=== PATIENT | female | born 1960 | race Two or more races ===

== ENCOUNTER 2021-10-28 21:48 | Inpatient (IN) | payer MEDICAID ==
[~2021-10-28] VITALS: Ht 162.6 cm; Wt 63.3 kg
[~2021-10-28 21:48] MED LIST: ALBU18 IN; ASPI-543 PO; BECL0.07 IN; FAMO-12 PO; FENO5TAB PO; GABA600T PO; GEM600T GT; LIS20T GT; LOVA40TA46 PO; MET25T PO; NOR10T PO; SERT50TA PO
[2021-10-28] MEDS ORDERED: cefTRIAXone 1GM/50ML D5W 50 ML IV ONE (23:00)
[2021-10-28] MEDS ORDERED: SODIUM CHLORIDE 0.9% 1,000 ML IV ONE ×2 (23:00)
[2021-10-28] MEDS ORDERED: ONDANSETRON HCL 4 MG/2 ML VIAL IV ONE (23:00)
[2021-10-29 02:03] LABS: Basophils # (auto) 0 10 ^3/uL (0-0.2); Eosinophils # (auto) 0.5 10 ^3/uL (0-0.8); Neutrophils # (auto) 2.5 10 ^3/uL (1.6-8.6); Red Blood Cells 2.94 10^6/uL (4.0-5.20)
[2021-10-29 02:05] LABS: Basophils % (auto) 0.8 % (0.0-2.0); Eosinophils % (auto) 11.6 % (0.0-7.0); Hemoglobin 8.3 g/dL (12.2-16.2); Lymphocytes # (auto) 0.9 10 ^3/uL (0.4-5.4); Lymphocytes % (auto) 19.8 % (10.0-50.0); Mean Corpuscular Hemoglobin 28.2 pg (28.0-32.0); Mean Corpuscular Hgb Conc. 33.1 g/dL (32.0-36.0); Mean Corpuscular Volume 85.1 fL (80.0-100.0); Monocytes # (auto) 0.5 10 ^3/uL (0-1.3); Monocytes % (auto) 10.8 % (0.0-12.0); Red Cell Distribution Width 15.3 % (11.8-14.3); White Blood Cell 4.4 10^3/uL (4.4-10.8)
[2021-10-29 02:27] LABS: INR 1.08 (0.9-1.15); Partial Thromboplastin Time 28.2 sec (23.6-33.0)
[2021-10-29 02:57] LABS: Calcium 8.3 mg/dL (8.5-10.1); Potassium 5.4 mmol/L (3.5-5.1)
[2021-10-29 03:11] LABS: Albumin 2.7 g/dL (3.4-5.0); BUN/Creatinine Ratio 19.7; Bilirubin, Total 0.2 mg/dL (0.2-1.0); Total Protein 7.2 g/dL (6.4-8.2)
[2021-10-29] MEDS ORDERED: cefTRIAXone 1GM/50ML D5W 50 ML IV ONE (03:15)
[2021-10-29] MEDS ORDERED: AZITHROMYCIN 500MG/ 250ML 250 ML IV ONE (03:15)
[2021-10-29] MEDS ORDERED: IOHEXOL 350 MG/ML 100ML IJ ONE (03:45)
[2021-10-29] MEDS ORDERED: InsuLIN REG 1unit/0.01ml Soln (100units/ml) IV ONE (11:15)
[2021-10-29] MEDS ORDERED: FUROSEMIDE 20 MG/2 ML VIAL IV ONE (11:15)
[2021-10-29] MEDS ORDERED: DEXTROSE (50%) 50ML SYRG IV ONE (11:15)
[2021-10-29] MEDS ORDERED: CALCIUM GLUC 1,000mg/50ml-NS 50 ML IV ONE (11:15)
[2021-10-29] MEDS ORDERED: SODIUM ZIRCONIUM CYCL 10 GM PAK PO ONE (11:15)
[2021-10-29] MEDS ORDERED: ALBUTEROL SULF 2.5 MG/0.5ML(0.5%) NEB SOLN NEB ONE (11:15)
[2021-10-29] MEDS ORDERED: NITROGLYCERIN 0.4 MG SL TAB SL PRN (12:00)
[2021-10-29] MEDS ORDERED: MORPHINE SULFATE INJECTION 2 MG/ML SYRG IV PRN (12:00)
[2021-10-29] MEDS: HYDROcodone-ACET 5/325MG TAB PO PRN (23:00)
[2021-10-29 23:22] LABS: Potassium 4.5 mmol/L (3.5-5.1)
[2021-10-30] MEDS: MORPHINE SULFATE 4 MG/ML SYR/VIAL IV PRN ×2 (00:25→12:50)
[2021-10-30 00:30] VITALS: BP 132/78
[2021-10-30] MEDS: ONDANSETRON HCL 4 MG/2 ML VIAL IV PRN (00:43)
[2021-10-30 01:04] VITALS: BP 132/68
[2021-10-30 05:00] VITALS: BP 102/59
[2021-10-30 07:04] LABS: Potassium 4.7 mmol/L (3.5-5.1)
[2021-10-30 07:10] LABS: Albumin 2.9 g/dL (3.4-5.0); BUN/Creatinine Ratio 19.9; Bilirubin, Total 0.2 mg/dL (0.2-1.0); Calcium 8.6 mg/dL (8.5-10.1); Total Protein 7.5 g/dL (6.4-8.2)
[2021-10-30 07:13] LABS: Basophils # (auto) 0 10 ^3/uL (0-0.2); Basophils % (auto) 0.5 % (0.0-2.0); Eosinophils # (auto) 0 10 ^3/uL (0-0.8); Eosinophils % (auto) 0.1 % (0.0-7.0); Hematocrit 29.2 % (36.0-46.0); Hemoglobin 9.9 g/dL (12.2-16.2); Lymphocytes # (auto) 1.3 10 ^3/uL (0.4-5.4); Lymphocytes % (auto) 21.6 % (10.0-50.0); Mean Corpuscular Hemoglobin 28.5 pg (28.0-32.0); Mean Corpuscular Hgb Conc. 33.7 g/dL (32.0-36.0); Mean Corpuscular Volume 84.5 fL (80.0-100.0); Monocytes # (auto) 0.5 10 ^3/uL (0-1.3); Neutrophils # (auto) 4.1 10 ^3/uL (1.6-8.6); Neutrophils % (auto) 69.8 % (37.0-80.0); Nucleated Red Blood Cells % 0.2 %; Red Blood Cells 3.46 10^6/uL (4.0-5.20); Red Cell Distribution Width 15.4 % (11.8-14.3); White Blood Cell 5.9 10^3/uL (4.4-10.8)
[2021-10-30 09:00] VITALS: BP 102/54
[2021-10-30] MEDS: cefTRIAXone 1GM/50ML D5W 50 ML IV SCH (09:30)
[2021-10-30] MEDS ORDERED: CEFTRIAXONE SODIUM 2 GM in D5W 5% 50 ML IV ONE (10:00)
[2021-10-30] MEDS: DexAMETHasone SOD PHOS 10MG/1ML VIAL INJ IV SCH (10:26)
[2021-10-30] MEDS: AZITHROMYCIN 500MG/ 250ML 250 ML IV SCH (10:26)
[2021-10-30] MEDS: ALBUTEROL SULF HFA 90MCG INH 200DOSE IN SCH (19:00)
[2021-10-30 22:00] VITALS: BP 99/56
[2021-10-31 05:00] VITALS: BP 153/80
[2021-10-31] MEDS: HYDROcodone-ACET 5/325MG TAB PO PRN (05:40)
[2021-10-31] MEDS: ALBUTEROL SULF HFA 90MCG INH 200DOSE IN SCH ×3 (07:38→19:05)
[2021-10-31 09:00] VITALS: BP 118/69
[2021-10-31] MEDS: cefTRIAXone 1GM/50ML D5W 50 ML IV SCH (09:36)
[2021-10-31] MEDS: DexAMETHasone SOD PHOS 10MG/1ML VIAL INJ IV SCH (09:37)
[2021-10-31] MEDS: ACETAMINOPHEN 325 MG TAB PO PRN (10:19)
[2021-10-31] MEDS: AZITHROMYCIN 500MG/ 250ML 250 ML IV SCH (10:35)
[2021-10-31] MEDS ORDERED: ERTAPENEM SOD INJ 1 GM in SODIUM CHL 0.9% 50 ML IV ONE (11:45)
[2021-10-31 13:00] VITALS: BP 162/84
[2021-10-31 16:00] VITALS: BP 122/62
[2021-10-31] MEDS: MEROPENEM 1GM IVPB 100 ML IV SCH (18:48)
[2021-10-31] MEDS ORDERED: APIX2.5T PO (19:39)
[2021-10-31 22:00] VITALS: BP 149/81
[2021-11-01] MEDS: ONDANSETRON HCL 4 MG/2 ML VIAL IV PRN ×3 (02:42→20:50)
[2021-11-01 05:00] VITALS: BP 151/73
[2021-11-01] MEDS: MEROPENEM 1GM IVPB 100 ML IV SCH ×2 (06:23→18:21)
[2021-11-01 08:30] VITALS: BP 134/81
[2021-11-01] MEDS: HYDROcodone-ACET 5/325MG TAB PO PRN ×2 (09:35→14:41)
[2021-11-01] MEDS: DexAMETHasone SOD PHOS 10MG/1ML VIAL INJ IV SCH (09:35)
[2021-11-01] MEDS ORDERED: ERTAPENEM SOD INJ 1 GM in SODIUM CHL 0.9% 50 ML IV SCH (10:00)
[2021-11-01 13:00] VITALS: BP 140/80
[2021-11-01 15:24] LABS: BUN/Creatinine Ratio 26.2; Calcium 8.7 mg/dL (8.5-10.1); Potassium 4.9 mmol/L (3.5-5.1)
[2021-11-01 17:17] VITALS: BP 122/73
[2021-11-01] MEDS: ALBUTEROL SULF HFA 90MCG INH 200DOSE IN PRN (21:10)
[2021-11-01 22:29] VITALS: BP 113/71
[2021-11-02 05:21] VITALS: BP 132/75
[2021-11-02] MEDS: MEROPENEM 1GM IVPB 100 ML IV SCH ×2 (05:59→18:17)
[2021-11-02] MEDS: ONDANSETRON HCL 4 MG/2 ML VIAL IV PRN ×2 (05:59→23:27)
[2021-11-02] MEDS: ALBUTEROL SULF HFA 90MCG INH 200DOSE IN PRN ×2 (06:09→20:06)
[2021-11-02 09:00] VITALS: BP 144/64
[2021-11-02] MEDS: HYDROcodone-ACET 5/325MG TAB PO PRN (09:20)
[2021-11-02] MEDS: DexAMETHasone SOD PHOS 10MG/1ML VIAL INJ IV SCH (09:44)
[2021-11-02 13:00] VITALS: BP 155/83
[2021-11-02 16:57] VITALS: BP 138/78
[2021-11-02 22:00] VITALS: BP 108/68
[2021-11-03 05:00] VITALS: BP 124/67
[2021-11-03] MEDS: MEROPENEM 1GM IVPB 100 ML IV SCH ×2 (06:15→18:35)
[2021-11-03 06:45] LABS: Basophils # (auto) 0 10 ^3/uL (0-0.2); Basophils % (auto) 0.4 % (0.0-2.0); Eosinophils # (auto) 0.1 10 ^3/uL (0-0.8); Eosinophils % (auto) 1.4 % (0.0-7.0); Hematocrit 31.4 % (36.0-46.0); Hemoglobin 10.5 g/dL (12.2-16.2); Lymphocytes % (auto) 49.5 % (10.0-50.0); Mean Corpuscular Hgb Conc. 33.3 g/dL (32.0-36.0); Mean Corpuscular Volume 83.9 fL (80.0-100.0); Monocytes # (auto) 0.5 10 ^3/uL (0-1.3); Monocytes % (auto) 12.9 % (0.0-12.0); Neutrophils # (auto) 1.4 10 ^3/uL (1.6-8.6); Neutrophils % (auto) 35.8 % (37.0-80.0); Nucleated Red Blood Cells % 0.4 %; Red Blood Cells 3.74 10^6/uL (4.0-5.20); Red Cell Distribution Width 14.9 % (11.8-14.3)
[2021-11-03] MEDS: ONDANSETRON HCL 4 MG/2 ML VIAL IV PRN (07:35)
[2021-11-03 08:00] VITALS: BP 118/76
[2021-11-03] MEDS: ALBUTEROL SULF HFA 90MCG INH 200DOSE IN PRN (09:01)
[2021-11-03] MEDS: DexAMETHasone SOD PHOS 10MG/1ML VIAL INJ IV SCH (09:32)
[2021-11-03] MEDS ORDERED: APIXABAN 2.5 MG TAB PO SCH (10:00)
[2021-11-03 12:00] VITALS: BP 122/67
[2021-11-03] MEDS: HYDROcodone-ACET 5/325MG TAB PO PRN (12:09)
[2021-11-03 15:58] VITALS: BP 106/72
[2021-11-03] MEDS: ACETAMINOPHEN 325 MG TAB PO PRN (17:33)
[2021-11-03] MEDS: THROAT LOZENGES(CEPASTAT) MT PRN (20:28)
[2021-11-03 22:00] VITALS: BP 132/66
[2021-11-04] MEDS: APIXABAN 2.5 MG TAB PO SCH ×3 (03:43→21:32)
[2021-11-04] MEDS: ONDANSETRON HCL 4 MG/2 ML VIAL IV PRN (04:00)
[2021-11-04 05:00] VITALS: BP 138/49
[2021-11-04] MEDS: MEROPENEM 1GM IVPB 100 ML IV SCH ×2 (06:23→18:10)
[2021-11-04] MEDS: ALBUTEROL SULF HFA 90MCG INH 200DOSE IN PRN ×2 (07:58→19:29)
[2021-11-04 08:22] VITALS: BP 142/71
[2021-11-04] MEDS: DexAMETHasone SOD PHOS 10MG/1ML VIAL INJ IV SCH (09:30)
[2021-11-04] MEDS: MORPHINE SULFATE INJECTION 2 MG/ML SYRG IV PRN (20:55)
[2021-11-04 22:00] VITALS: BP 132/69
[2021-11-05] MEDS: THROAT LOZENGES(CEPASTAT) MT PRN ×2 (00:23→17:44)
[2021-11-05 05:00] VITALS: BP 149/85
[2021-11-05] MEDS: MEROPENEM 1GM IVPB 100 ML IV SCH ×2 (05:36→17:44)
[2021-11-05] MEDS: ALBUTEROL SULF HFA 90MCG INH 200DOSE IN PRN ×2 (09:27→19:38)
[2021-11-05] MEDS: APIXABAN 2.5 MG TAB PO SCH ×2 (10:17→22:14)
[2021-11-05] MEDS: DexAMETHasone SOD PHOS 10MG/1ML VIAL INJ IV SCH (10:17)
[2021-11-05 10:23] LABS: Potassium 4.4 mmol/L (3.5-5.1)
[2021-11-05 10:29] LABS: BUN/Creatinine Ratio 25.9; Calcium 8.8 mg/dL (8.5-10.1)
[2021-11-05] MEDS: ACETAMINOPHEN 325 MG TAB PO PRN (17:45)
[2021-11-05 22:00] VITALS: BP 134/84
[2021-11-06 05:00] VITALS: BP 122/85
[2021-11-06] MEDS: MEROPENEM 1GM IVPB 100 ML IV SCH ×2 (05:22→21:27)
[2021-11-06] MEDS: ALBUTEROL SULF HFA 90MCG INH 200DOSE IN PRN (05:53)
[2021-11-06 08:51] VITALS: BP 136/77
[2021-11-06] MEDS: APIXABAN 2.5 MG TAB PO SCH ×2 (09:47→21:27)
[2021-11-06] MEDS: DexAMETHasone SOD PHOS 10MG/1ML VIAL INJ IV SCH (09:47)
[2021-11-06 13:00] VITALS: BP 141/91
[2021-11-06 16:54] VITALS: BP 175/96
[2021-11-06 22:00] VITALS: BP 139/79
[2021-11-06] MEDS: MORPHINE SULFATE INJECTION 2 MG/ML SYRG IV PRN (22:20)
[2021-11-06] MEDS: ONDANSETRON HCL 4 MG/2 ML VIAL IV PRN (22:21)
[2021-11-07 05:00] VITALS: BP 137/83
[2021-11-07] MEDS: MEROPENEM 1GM IVPB 100 ML IV SCH (05:53)
[2021-11-07] MEDS: ALBUTEROL SULF HFA 90MCG INH 200DOSE IN PRN (09:08)
== END 2021-11-07 10:00 | DRG 137 ==
LOC: EDBD 21:48 → ER 21:48 → TELE 10-29 11:55 → TELE-WESTW 10-29 23:48
PROVIDERS: ADMIT Internal Medicine; ATTEND Internal Medicine
DX: U07.1 COVID-19 (principal); N17.0 Acute kidney failure with tubular necrosis; J12.82 Pneumonia due to coronavirus disease 2019; R78.81 Bacteremia; G82.20 Paraplegia, unspecified; B96.1 Klebsiella pneumoniae [K. pneumoniae] as the cause of diseases classified elsewhere; E11.9 Type 2 diabetes mellitus without complications; B96.20 Unspecified Escherichia coli [E. coli] as the cause of diseases classified elsewhere; I11.0 Hypertensive heart disease with heart failure; I50.9 Heart failure, unspecified; J98.11 Atelectasis; E87.5 Hyperkalemia; J45.909 Unspecified asthma, uncomplicated; Z79.4 Long term (current) use of insulin; Z79.899 Other long term (current) drug therapy; Z86.14 Personal history of Methicillin resistant Staphylococcus aureus infection; Z90.49 Acquired absence of other specified parts of digestive tract; Z98.51 Tubal ligation status
CPT/HCPCS: 36415; 71045; 74176; 80048; 80053; 82728; 82962; 83605; 83735; 83880; 84132; 84484; 85025; 85379; 85610; 85730; 86141; 87040; 87077; 87186; 87426; 87493; 93005; 93306; 93971; 94640; 96365; 96375; 97110; 97116; 97163; 97530; 99291; G0378; J0696; J1100; J1335; J2185; J2405